=== PATIENT | female | born 2000 | race Caucasian/White ===

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

== ENCOUNTER 2023-02-11 22:18 | Emergency (ER) | payer SELFPAY ==
[~2023-02-11] VITALS: Ht 152.4 cm; Wt 74.8 kg
[~2023-02-11 22:18] MED LIST: NITR100C7 PO
[2023-02-11 22:25] VITALS: BP 113/71; PULSE 109; RESP 20; TEMP 102.3; O2SAT 98
[2023-02-11] MEDS ORDERED: ACETAMINOPHEN EXTRA STRENGTH 500 MG TAB PO ONE (22:35)
[2023-02-12 00:11] LABS: FLU A ANTIGEN negative (NEGATIVE); FLU B ANTIGEN NEGATIVE (NEGATIVE)
[2023-02-12] MEDS ORDERED: IBUPROFEN 600 MG TAB PO ONE (01:25)
[2023-02-12 02:25] VITALS: BP 110/71; PULSE 99; RESP 20; TEMP 98.9; O2SAT 98
== END 2023-02-12 02:25 | disposition home or self-care (01) ==
LOC: MED 22:18
DX: J06.9 Acute upper respiratory infection, unspecified (principal); R07.89 Other chest pain; Z20.822 Contact with and (suspected) exposure to COVID-19; Z79.2 Long term (current) use of antibiotics
CPT/HCPCS: 71045; 93005; 99285